=== PATIENT | female | born 1935 ===

== ENCOUNTER → 2016-06-29 | Outpatient (CLI) | payer MEDICARE, BC ==
[~2016-06-29] MED LIST: ASPIRIN LO-DOSE81 MG PO; ATORVASTATIN CA40 MG PO; BRILINTA90 MG PO; LEVOTHROID (S200 MCG PO; LEVOTHROID (SY50 MCG PO; LOSARTAN POTASS50 MG PO; METFORMIN HCL1000 MG PO; METOPROLOL TART25 MG PO
[2016-06-29 09:49] LABS: ALBUMIN 3.4 gm/dL (3.5-5.0); ALK PHOS 74 IU/L (33-138); ALT 29 IU/L (12-78); AST 25 IU/L (10-40); TOTAL BILIRUBIN 0.4 mg/dL (0.0-1.5); TOTAL PROTEIN 7.3 g/dL (6.0-8.4)
== END | disposition disaster alternative care site (69) ==
LOC: LCNC 09:28
PROVIDERS: Internal Medicine Interventional Cardiology
DX: E11.9 Type 2 diabetes mellitus without complications (principal); E78.00 Pure hypercholesterolemia, unspecified; R53.82 Chronic fatigue, unspecified

== ENCOUNTER 2016-10-26 17:20 | Inpatient (IN) | payer MEDICARE, BC ==
[~2016-10-26] VITALS: Ht 160 cm; Wt 88.6 kg
--- NOTE | ~2016-10-26 | CATH ---
Cardiac Diagnostic + PCI Report Demographics Patient Name JULIAN Meza Gender Female Date of 1935 Age 80 year(s) Patient Number [id number] Date of Study 10/27/2016 Visit Number [id number] Room Number G6338 [place] [id number] Ht 160.02 cm Wt 90.8 kg Referring Jacoby Otoolelambert Manzanares Primary Physician Physician MD Can Garcia MD Per[facility] Secondary Physician Physician Radha ENGLE Diagnostic [facility] Assisting Physician Physician Radha ENGLE Interventional [facility] Phys[facility] Evp Operations Physician Radha ENGLE Findings and Conclusions Diagnostic Findings and Conclusion 3 vessel CAD There is a focal 80% stenosis in the distal portion of the RCA. Diagnostic Recommendations 1.NSTEMI 2.PCI distal RCA 3.Poorly controlled Hypertension 4.LVEDP 10mmHg with no gradient across the aortic valve. Interventional Findings and Conclusion Status post PCI RCA with LUIS MIGUEL 3.0x16 promus premier stent. Interventional Recommendations Continue regular medications. Continue current medications. Hydration and followup creatinine. Patient has been instructed to not lift anything more than 5 pounds for 1 week. Aggressive risk factor management. Aggressive medical therapy. Aggressive medical therapy for coronary artery disease. Aggressive control of blood pressure. Dual Anti-platelet therapy. Optimization of medical therapy as an outpatient. Referral to Cardiac Rehabilitation now and at discharge . The patient will be observed in telemetry overnight and if stable, the patient will be allowed to return home tomorrow. I would like to thank Dr. Michel for the opportunity to participate in the care of Mrs Kunz . Procedure Description The patient was brought to the diagnostic cardiac catheterization-EP laboratory in the fasting, non-sedated state. Informed consent was obtained in the written and verbal form after the risks and benefits were explained. The patient had no further questions and agreed to proceed. The planned puncture-incision site(s) were shaved and prepped with ChloraPrep and draped in the usual sterile manner. Conscious sedation, supplemental oxygen, and pain control medications were delivered by a registered nurse under physician guidance. Surface ECG rhythm, blood pressure measurement, and pulse oximetry were monitored throughout the procedure. Arterial access. The access site was infiltrated with lidocaine. The vessel was entered with the Seldinger technique. A sheath was advanced into the vessel and used for catheter placement. Selective left coronary angiography. A catheter was advanced into the left coronary vessel ostium under Fluoroscopic guidance. Contrast was injected by hand. Images were obtained in multiple projections. Selective right coronary angiography. A catheter was advanced into the right coronary vessel ostium under fluoroscopic guidance. Contrast was injected by hand. Images were obtained in multiple projections. Left heart catheterization. A catheter was advanced across the aortic valve to the left ventricle under fluoroscopic guidance. Resting hemodynamics were obtained. Angioplasty and Stent Placement: A guiding catheter was used to intubate the vessel. A 0.14 wire was then used to cross the lesion. A balloon catheter was placed across the lesion and inflated. The balloon catheter was then removed. A Drug Eluting Stent was placed and inflated. Post placement angiograms were performed. Arterial artery hemostasis was achieved. The patient was transferred to a regular nursing floor via cart accompanied by a nurse. The patient left the laboratory in stable condition. Diagnostic Cath Status: Urgent Interventional Cath Status: Urgent Procedure Procedure Type Diagnostic procedure:Angiography:, Coronary Angios w/[facility] PCI procedure:Drug Eluting Coronary Stent:, RCA Indications: Dizziness and Elevated troponin. The procedure was explained in detail to the patient. Risks, complications and alternative treatments were reviewed. Written consent was obtained. Medications Reviewed with Patient prior to Procedure. Angiographic Findings Dominance: Right Cardiac Arteries and Lesion Findings LMCA: Lesion on LMCA: Mid subsection.10% stenosis . LAD: Diag very small.There is a previous stent on Prox LAD showing wide patency. Lesion on Dist LAD: Distal subsection.20% stenosis . Lesion on 1st Diag: Ostial.70% stenosis . LCx: OM smallThere is a previous stent on Mid CX Proximal subsection showing wide patency. Lesion on Prox CX: Proximal subsection.20% stenosis . Lesion on Mid CX: Mid subsection.40% stenosis . Lesion on 1st Ob Taylor: Mid subsection.20% stenosis . RCA: Lesion on Dist RCA: Distal subsection.80% stenosis 12 mm length reduced to 0%. Pre procedure BOB III flow was noted. Post Procedure BOB III flow was present. The guidewire cross was successful.The lesion was diagnosed as a low risk lesion.Culprit lesion. Devices used - Runthrough NS .014 x 180. Number of passes: 1. - Emerge Balloon 2.5 x 12. 1 inflation(s) to a max pressure of: 8 vivek. - Promus Premier 3.0 x 16 Stent. 2 inflation(s) to a max pressure of: 14 vivek. Lesion on Prox RCA: Proximal subsection.40% stenosis . Coronary Tree Procedure Data Procedure Date Date: 10/27/2016Start: 09:02 AMEnd: 09:56 AM Entry Locations - Percutaneous access was performed through the Right Radial artery (Primary location). A 6 Fr sheath was inserted. Unsuccessful closure attempt was performed using: Mechanical Compression. Hemostasis was successfully obtained using an R band. Closure Comments: R) band applied by Jonna. 10 ml of air in band. . Procedure Medications Order and Administration + + + + + !Time !Medication !Dosage !Route ! + + + + + !10/27/2016 09:00 AM!Versed !1 mg !I.V. ! + + + + + 10/27/2016 09:00 AM!Oxygen !2 l/min ! ! + + + + + 10/27/2016 09:02 AM!Fentanyl !25 mcg !I.V. ! + + + + + !10/27/2016 09:05 AM!Radial Verapamil !2.5 mg !I.A. ! + + + + + !10/27/2016 09:13 AM!Heparin (ACC_3) !5000 units!I.V. ! + + + + + !10/27/2016 09:13 AM!Hydralizine !20 mg !I.V. ! + + + + + !10/27/2016 09:16 AM!Nitroglycerin !10 mcg/min!I.V. drip ! + + + + + !10/27/2016 09:19 AM!Nitroglycerin ! !I.V. drip ! + + + + + !10/27/2016 09:19 AM!0.9% NaCl !500 ml !I.V. bolus ! + + + + + !10/27/2016 09:21 AM!0.9% NaCl ! !I.V. bolus ! + + + + + !10/27/2016 09:27 AM!Heparin (ACC_3) !2000 units!I.V. ! + + + + + !10/27/2016 09:55 AM!Brilinta (Ticagrelor) (ACC_20)!180 mg !P.O. ! + + + + + Devices Used - A5 Fr. BS JR 4 Diag. Catheterwas used for:Right coronary angiography. - A5 Fr. BS JL 3.5 Diag. Catheterwas used for:Left coronary angiography. - A5 Fr. BS JR 4 Diag. Catheterwas used for:Right coronary angiography. Contrast Material - Isovue 56346 ml Fluoroscopy Time: Diagnostic: 14:24 minutes. Total: 14:24 minutes. Fluoroscopy Dose: Diagnostic: 982 mGy. Total: 982 mGy. Estimated Blood Loss: 15 ml. Additional [facility] PCI Information PCI Indication:PCI for high risk Non-STEMI or unstable angina. Medical History Performed Procedures and Imaging Results - No [facility] stress or imaging studies were performed. Allergies - No known allergies. Risk Factors The patient risk factors include:prior PCI;cerebrovascular disease, hypertension, orally-treated diabetes mellitus, last creatinine: 0.8 mg/dl, creatinine clearance: 79.06 ml/min and dyslipidemia. Admission Data Admission Date: 10/26/2016 Admission Time: 07:15 PM Admit Source: Emergency department Insurance Payors: Medicare. Admission Medications + +------+------+ + + + + !Medication !Dosage!Times !Last !Last !Administered !Comments ! ! ! !Per !Delivery !Delivery ! ! ! ! ! !Day !Date !Time ! ! ! + +------+------+ + + + + !Beta ! ! ! ! !Yes ! ! !Rick ! ! ! ! ! ! ! !(any) ! ! ! ! ! ! ! + +------+------+ + + + + !Aspirin ! ! ! ! !Yes ! ! !(any) ! ! ! ! ! ! ! + +------+------+ + + + + !ARB (any) ! ! ! ! !Yes ! ! + +------+------+ + + + + !Statin ! ! ! ! !Yes ! ! !(any) ! ! ! ! ! ! ! + +------+------+ + + + + Clinical Evaluation Leading to Procedure - The patient's CAD presentation was assessed as: Non-STEMI. - Anti-anginal medications were prescribed during the past two weeks. The medication is: Beta Blockers. Hemodynamics Condition: Rest O2 Consumption: Estimated: 175.97Heart Rate: 75 bpm Pressures (mmHg) +-----+ + !Site !Pressure ! +-----+ + !AO !245/78 (147) ! +-----+ + !LV !220/10 ,13 ! +-----+ + !LV !206/9 ,12 ! +-----+ + !AO !209/68 (125) ! +-----+ + !LV !/6 ,10 ! +-----+ + !AO !86/32 (50) ! +-----+ + !AO !169/55 (101) ! +-----+ + Valve Gradients and Areas + +---------+---------+---------+ +---------+ + !Valve !Peak !Mean !Area !Index !Flow !Source ! + +---------+---------+---------+ +---------+ + !Aortic !0 !0 ! ! ! ! ! + +---------+---------+---------+ +---------+ + !Aortic !0 !0 ! ! ! ! ! + +---------+---------+---------+ +---------+ + Shunts Oxygen Values O2 Capacity 175.44 O2 Consumption 175.97 Signatures dtt: RADHA HARRIS dtd: 10/27/16 0902 Physician Self Edit
--- NOTE | ~2016-10-26 | HP ---
PATIENT'S NAME: SHAUNNA JORDAN [facility] AGE: 80 Y [address] ROOM: [place] [address] LOCATION: GPCU ADMIT DATE: 10/26/2016 History & Physical DISCHARGE DATE: FAMILY PHYSICIAN: LIDIA SIMEON MD ATTENDING PHYSICIAN: LIDIA SIMEON DATE OF SERVICE: CHIEF COMPLAINT: Nausea and vomiting. HISTORY OF PRESENT ILLNESS: The patient is a pleasant, elderly, white female, well known to me, who all of a sudden this mid afternoon today developed nausea and vomiting. She had a bowel movement earlier today with no melena noted. She vomited no blood, but just felt dizzy before this nausea and vomiting spell. She has had no recent head trauma. She is type 2 diabetic with a known heart murmur and coronary artery disease and previous carotid endarterectomy. Here in the hospital, she was seen by the emergency room physician/nurse practitioner, KACIE, and because her cardiac enzymes were a bit elevated and because she has persistent nausea and vomiting, I am asked to see her and consider admission. I have had the nurses call the patient's tray server, Dr. Michel. He happened to be out of town, so Dr. Johnson, [facility] tray server has recommended we admit the patient for observation. When I come to see the patient in the emergency room, she is resting quietly, alert, but is pale and nauseated. She is oriented to person, place, and time. Has no focal neurologic abnormality. Does not complain of a headache or chest pain. She says her dizziness is okay as long as she keeps her head still. We will admit her at this time, give her IV fluid normal saline, recheck cardiac enzymes and EKG in a serial fashion, and have Cardiology see her in the morning. I have ordered an echocardiogram for the morning also. We will check Accu-Cheks and use a sliding scale insulin here as needed. PAST MEDICAL HISTORY: MEDICINES: Reviewed. ALLERGIES: NOTED. SOCIAL HISTORY: Does not smoke. PATIENT'S NAME: SHAUNNA JORDAN [facility] AGE: 80 Y [address] ROOM: [place] [address] LOCATION: GPCU ADMIT DATE: 10/26/2016 History & Physical DISCHARGE DATE: FAMILY PHYSICIAN: LIDIA SIMEON MD ATTENDING PHYSICIAN: LIDIA SIMEON FAMILY HISTORY: Noncontributory. IMMUNIZATIONS STATUS: Up-to-date for age. REVIEW OF SYSTEMS: Positive for history of coronary artery disease, carotid endarterectomy, diabetes mellitus type 2, known heart murmur, exogenous obesity, and recent dizziness. Otherwise, see nurse's database form. PHYSICAL EXAMINATION: GENERAL: A pleasant dark-haired female, who appears at her stated age, sitting in the ER. She is oriented to person, place, and time. VITAL SIGNS: Noted. HEENT: Shows pupils react to light. She has no nystagmus. TMs are not visualized. Posterior pharynx is clear. NECK: Shows no obvious mass. Thyroid is not enlarged. I did not listen for a bruit. LUNGS: Clear. She has a grade 2-3/6 systolic ejection murmur, heard at the right second intercostal space and apex. BREASTS: Not done. ABDOMEN: Benign without point tenderness or mass. PELVIC AND RECTAL: Not done. EXTREMITIES: Show trace of edema. Pulses full throughout. NEUROLOGIC: Grossly intact. Cranial nerves intact. No lateralizing signs. MENTAL STATUS: She is anxious about her health. ASSESSMENT: 1. Acute nausea and vomiting secondary to dizziness, etiology undetermined. 2. Known coronary disease. 3. Heart murmur, systolic. 4. Status post right carotid endarterectomy. 5. History of diabetes mellitus type 2, treated with insulin. 6. History of hypothyroidism. PLAN: As above. LIDIA SIMEON MD PATIENT'S NAME: SHAUNNA JORDAN [facility] AGE: 80 Y [address] ROOM: [id number] [place] [id number] LOCATION: GPCU ADMIT DATE: 10/26/2016 History & Physical DISCHARGE DATE: FAMILY PHYSICIAN: LIDIA SIMEON MD ATTENDING PHYSICIAN: LIDIA SIMEON INVESTOR RELATIONS DIRECTOR/modl /[id number] D: [id number] HISTORY & PHYSICAL
--- NOTE | ~2016-10-26 | CON ---
PATIENT'S NAME: SHAUNNA JORDAN [facility] AGE: 80 Y [address] ROOM: [place] [address] LOCATION: GPCU ADMIT DATE: 10/26/2016 Consultation DISCHARGE DATE: FAMILY PHYSICIAN: LIDIA DOZIER MD ATTENDING PHYSICIAN: LIDIA DOZIER DATE OF CONSULTATION: 10/27/2016 REFERRING PHYSICIAN: Gurdeep Michel MD REQUESTING PROVIDER: Lidia Dozier MD. PRIMARY DAIRY FARM WORKER: Gurdeep Michel MD. CHIEF COMPLAINT: Nausea, dizziness, and diaphoresis. HISTORY OF PRESENT ILLNESS: The patient is a very pleasant 80-year-old female who has a history of coronary artery disease status post PCI to RCA, stenting of the LAD and circumflex in the past. The patient also has history of renal artery stenosis status post stenting of both renal arteries. The patient usually sees Dr. Michel and I am seeing her today because I am on-call and he is not available. The patient presented to the ER yesterday with complaints of nausea as well as vomiting, severe diaphoresis, and dizziness. Her symptoms lasted a few hours and they were recurrent. She was quite diaphoretic with her symptoms as well as had dizziness. She reports some shortness of breath, however, no chest discomfort. She does not have any PND or orthopnea. She has lower extremity edema off and on. She has not had any syncopal episodes or palpitations. No fever, chills, changes in her vision, strength, or sensation. She does not really have any other acute complaints at this time. She has numerous comorbidities including type 2 diabetes mellitus, history of heart murmur, history of previous carotid endarterectomy. Overnight, the patient did do well and her nausea resolved. However, she did have an elevated troponin and some ST depressions in the EKG, a little bit more pronounced than prior especially in lead V3, normal sinus rhythm, LVH with ST depressions in inferior and anterolateral leads likely secondary to LVH. The patient is comfortable during interview. PATIENT'S NAME: SHAUNNA JORDAN [facility] AGE: 80 Y [address] ROOM: [place] [address] LOCATION: GPCU ADMIT DATE: 10/26/2016 Consultation DISCHARGE DATE: FAMILY PHYSICIAN: LIDIA DOZIER MD ATTENDING PHYSICIAN: LIDIA DOZIER REVIEW OF SYSTEMS: A 10-point review of systems discussed with the patient. Pertinent positives and negatives mentioned in the history of presenting illness. ALLERGIES: NO KNOWN DRUG ALLERGIES. MEDICATIONS: 1. Aspirin 81 daily. 2. Atorvastatin 40 mg daily. 3. Synthroid 50 mcg daily. 4. Losartan 50 daily. 5. Metformin 500 mg p.o. b.i.d. 6. Metoprolol tartrate 12.5 b.i.d. 7. Synthroid 250 mcg daily. 8. In the hospital, she is on sliding scale insulin as well as Rocephin. PAST MEDICAL HISTORY: 1. Coronary artery disease status post PCI to LAD in 2008 and then circumflex in 2014, renal artery stenosis status post bilateral renal artery stenting. 2. Hypertension. 3. Hyperlipidemia. 4. History of CVA. 5. History of LVH. 6. Aortic valve sclerosis. 7. Type 2 diabetes mellitus. 8. Hypothyroidism. 9. Osteoarthritis. PAST SURGICAL HISTORY: 1. Left medial meniscal tear repair in 2001. 2. Left total knee arthroplasty in 2002. 3. Right and left cataract surgery. 4. Right total knee replacement in 10/2004. 5. Left CEA status post CVA in 2010. 6. Renal artery stenting bilaterally. FAMILY HISTORY: No premature coronary artery disease or sudden cardiac . SOCIAL HISTORY: The patient does not smoke or drink alcohol. No illicit drug abuse. She is . PATIENT'S NAME: SHAUNNA JORDAN [facility] AGE: 80 Y [address] ROOM: [id number] [place] [id number] LOCATION: GPCU ADMIT DATE: 10/26/2016 Consultation DISCHARGE DATE: FAMILY PHYSICIAN: LIDIA DOZIER MD ATTENDING PHYSICIAN: LIDIA DOZIER ALLERGIES: LISINOPRIL CAUSES ADVERSE REACTION AND COUGH. PHYSICAL EXAMINATION: VITAL SIGNS: Blood pressure is 190/70 mmHg, heart rate is in the 60s, respirations 16, and O2 saturation 97% on room air. GENERAL: She is well nourished, well developed, not in any apparent distress. HEAD: Atraumatic, normocephalic. NECK: No JVD. Good range of motion. Left CEA scar noted. HEART: S1, S2. Regular rate and rhythm. 3/6 systolic murmur best heard in the right upper sternal border. CHEST: Clear to auscultation bilaterally. No wheezing or crackles. ABDOMEN: Soft. Bowel sounds positive. EXTREMITIES: No significant lower extremity edema. SKIN: Warm and dry. PSYCHIATRIC: Mood normal. The patient is cooperative. NEUROLOGIC: Grossly intact. She is awake, alert, and oriented to time, place, and person. IMPRESSION: 1. NSTEMI: Coronary artery disease of [place] vessels status post PCI of the LAD and circumflex in the past and now admitted with non-ST elevation myocardial infarction. Her troponin peak is 0.3, CPK 737, and CK-MB is 14.8. The CK-MB peaked at 24.7. 2. Secondary hypertension,given the history of renal artery stenosis s/p stenting bilaterally. 3. Diabetes mellitus type 2. 4. Hyperlipidemia. 5. Hypothyroidism. 6. Aortic valve sclerosis. 7. History of cerebrovascular accident status post left carotid endarterectomy. PLAN: 1. At this time recommend more aggressive blood pressure control. Her blood pressure this morning was systolic 180s. We will continue to optimize her meds. Given the [id number] myocardial infarction, we will proceed with left heart catheterization plus minus PCI. Risks and benefits were discussed with the patient and and they are agreeable to proceed with plan. Risk of bleeding, bruising, infection 1 in 100 cases, risk of heart attack, , stroke, SC, bleed, CVA, EDMAR, end-stage renal, and worsening renal function including need for dialysis discussed with the patient. They are agreeable given the non-STEMI to PATIENT'S NAME: SHAUNNA JORDAN [facility] AGE: 80 Y [address] ROOM: [place] [address] LOCATION: GPCU ADMIT DATE: 10/26/2016 Consultation DISCHARGE DATE: FAMILY PHYSICIAN: LIDIA DOZIER MD ATTENDING PHYSICIAN: LIDIA DOZIER proceed with cardiac cath. Optimize her statin therapy as well depending on her LDL. 2. She is on sliding scale insulin for better blood sugar control. 3. Further recommendations after the cardiac cath findings. Thank you very much Dr. Dozier and Dr. Michel for allowing us to participate in the care of Ms. Jordan. MD BUTCH ANAYA/robby /[id number] d: 10/27/16 1623 t: 10/28/16 1213, CONSULTATION REPORT
--- NOTE | ~2016-10-26 | ECHO ---
Transthoracic Echocardiography Report (TTE) Demographics Patient Name SHAUNNA JORDAN Date of Study 10/27/2016 Patient Number [id number] Visit Number [id number] Date of 1935 Room Number G6338 Accession Number [id number] Gender Female Age 80 year(s) Referring Jacoby Manzanares Medical Delivery Driver Alisson Mccall RDCS, Physician RVT Physician Interpreting [place] Manager Disaster Recovery Physician Radha ENGLE Supervising Ordering Physician Jacoby Manzanares MD/MLP Nurse Stress Asphalt Distributor Operator Conclusions Contractility Score Summary Normal Left Ventricular contractility was noted. Summary Normal LV/RV size and systolic function. The estimated left ventricular ejection fraction is 60-65%. Mild to moderate concentric left ventricular hypertrophy. Diastolic assessment reveals Grade I diastolic dysfunction. The left atrium is mildly dilated. No significant valvular abnormalities. Procedure Type of Study TTE procedure:2D Echocardiogram. Procedure Date Date: 10/27/2016 Start: 06:49 AM Study Location: Inpatient Portable Technical Quality: Fair Indications:Elevated cardiac enzymes. Appropriate Use Criteria: 9 Patient Status: Routine Contrast Medium: Bubble Study. Amount - 9 ml Rhythm: Within normal limits HR: 65 bpm Allergies - No known allergies. M-Mode/2D Measurements LV Diastolic Dimension: 3.89 cm LV Systolic Dimension: 2.73 cm LV Septum Diastolic: 1.41 cm LV Septum Systolic: 2.96 cm LV PW Diastolic: 1.56 cm AO Root Dimension: 2.5 cm Cardiac Output: 6.57 l/min AV Cusp Separation: 0.9 cm RV Diastolic Dimension: 2.3 cm LA volume: 79 ml IVC Inspiration: 1.37 cm LVOT: 2.1 cm RV Base: 3.69 cm LVOT VTI: 29.2 cm RV Mid: 2.61 cm LV Stroke volume: 101.09 ml TAPSE: 2.08 cm TDI-S': 15 cm/s Doppler Measurements AV Peak Velocity: 1.83 m/s MV Peak E-Wave: 1.03 m/s AV Peak Gradient: 13.4 mmHg MV Peak A-Wave: 1.26 m/s AV Mean Gradient: 7 mmHg MV E/A Ratio: 0.82 LVOT Peak Velocity: 1.22 m/s MV P1/2t: 62 msec TR Gradient:26.21 mmHg PV Peak Velocity: 1.15 m/s Estimated RAP:3 mmHg PV Peak Gradient: 5.29 mmHg Estimated RVSP: 29 mmHg Estimated PASP: 29.21 mmHg E' Septal Velocity: 0.05 m/s A' Septal Velocity: 0.08 m/s E' Lateral Velocity: 0.05 m/s A' Lateral Velocity: 0.11 m/s MV E/E' Ratio: 19 Findings Left Ventricle Mild to moderate concentric left ventricular hypertrophy. Diastolic assessment reveals Grade I diastolic dysfunction. Right Ventricle Grossly normal right ventricle structure and function. Left Atrium The left atrium is mildly dilated. Right Atrium The right atrium is normal in size. IVC measures 1.4 cm with inspiratory collapse. Mitral Valve Mild mitral regurgitation by color Doppler. Mild mitral annular calcification. Aortic Valve The aortic valve is mildly sclerotic. Tricuspid Valve Mild tricuspid regurgitation by color Doppler. Pulmonic Valve No pulmonic valve regurgitation by color Doppler. Grossly normal pulmonic valved anatomy and function. Pericardial Effusion No evidence of pericardial effusion. Epicardial fat pad noted. Miscellaneous Visualized portions of the aortic root and ascending aorta appear normal in size. Pleural Effusion No evidence of pleural effusion. Contractility Score LV regional wall motion:(0-Non visualized 1-Normal 2-Hypokinesis 3-Akinesis 4-Dyskinesis 5-Aneurysm) Signature dtt: RADHA HARRIS dtd: 10/27/16 0649 Physician Self Edit
--- NOTE | ~2016-10-26 | DS ---
PATIENT'S NAME: SHAUNNA JORDAN [facility] AGE: 80 Y [address] ROOM: [facility] [place] [place] [address] LOCATION: GPCU ADMIT DATE: 10/26/2016 Discharge Summary DISCHARGE DATE: 10/28/2016 FAMILY PHYSICIAN: Lidia Simeon MD ATTENDING PHYSICIAN: Lidia Simeon FINAL DIAGNOSES: 1. Acute nausea and vomiting, resolved. 2. Non-ST segment myocardial infarction. 3. Occlusion, right coronary artery, status post heart catheterization and stent placement in right coronary artery. 4. Diabetes mellitus type 2. 5. Hypothyroidism. 6. Status post pacemaker for sick sinus syndrome. 7. Status post carotid endarterectomy. 8. Known coronary artery disease. 9. Hypertension, now essential. HOSPITAL COURSE: This pleasant 80-year-old female was admitted to the hospital with acute nausea and vomiting from the ER because not only did she have those symptoms but she also had an elevated CPK, CPK-MB, and troponin. Her EKG showed no evolutionary changes consistent with [place]. She was seen in consultation by Dr. Radha Vaca, the want ad clerk from [facility] and was taken to the laboratory associate the day prior to dismissal and was found to have an occlusion in the right coronary artery and a stent was placed. Please refer to Dr. Radha Vaca's heart catheterization note. On the day of dismissal, the patient was chest pain-free, her nausea and vomiting had resolved. She was tolerating diet well. She was ambulating without chest pain or shortness of breath. She is dismissed on the med list shown, this has been blessed by the cardiology team and she should see me back in the office in a couple weeks and follow up as directed per the want ad clerk status post heart catheterization. Certainly, if she has chest pain or shortness of breath or recurrent nausea and vomiting, she should be seen back earlier. LIDIA SIMEON MD CASE LOADER OPERATOR/modl /[id number] d: 10/28/16 0813 t: 11/02/16 1735, DISCHARGE SUMMARY
--- NOTE | ~2016-10-26 | ER ---
[facility] 80 Y [address] ROOM: [address] [address] LOCATION: GPCU ADMIT DATE: 10/26/2016 ER/Outpatient Report DISCHARGE DATE: FAMILY PHYSICIAN: LIDIA DOZIER MD ATTENDING PHYSICIAN: LIDIA DOZIER Time of Arrival: 172. Time of Evaluation: 172. CHIEF COMPLAINT: Dizziness. HISTORY OF PRESENT ILLNESS: The patient states approximately 4 o'clock this afternoon she was sitting in her recliner at home, had felt fine earlier today, she had sudden onset of feeling very dizzy and lightheaded. She got nauseated. Did vomit prior to arrival. Became very diaphoretic but denied having any chest pain or feeling short of breath. Upon arrival to the ER, she continues to deny any chest pain. Denies having had a cough or shortness of breath. Denies feeling feverish or chills. States she just got very hot and became very sweaty. States she did have diarrhea stools x3 after the dizziness started prior to the ER. ALLERGIES: SHE HAS NO KNOWN ALLERGIES. CURRENT MEDICATIONS: On her chart and reviewed by me. 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 PAST SURGERIES: Include a carotid endarterectomy, coronary artery stents x2, renal stents x2, cataracts, total knee x2. SOCIAL HISTORY: She lives at home with her . Denies use of tobacco, drugs, or alcohol. She states Dr. Dozier is her primary provider. Dr. Michel is her boss miner. REVIEW OF SYSTEMS: All negative other than those mentioned in the HPI. [facility]GE: 80 Y [address] ROOM: [address] [address] LOCATION: GPCU ADMIT DATE: 10/26/2016 ER/Outpatient Report DISCHARGE DATE: FAMILY PHYSICIAN: ILDIA DOZIER MD ATTENDING PHYSICIAN: LIDIA DOZIER PHYSICAL EXAMINATION: VITAL SIGNS: She weighed 87.9 kg. Blood pressure is 221/100, pulse is 76, respirations 20, temperature of 95.7 tympanic, O2 saturation has been 94% on room air. GENERAL: She is awake, alert, and oriented x4. SKIN: Her skin is pink, but diaphoretic. RESPIRATIONS: Even and nonlabored. EYES: Pupils are equal and reactive to light. LUNGS: Sounds are clear throughout. HEART: Regular rate and rhythm. ABDOMEN: Soft, nondistended. Bowel sounds are present. EMERGENCY DEPARTMENT COURSE: monitoring analyst shows a sinus rhythm. She does have some weakness of the right hand. She states that has not changed from when she had her stroke. Dr. Verduzco was contacted. He did also examine the patient. She is positive for nystagmus with his exam. Saline lock was initiated. Lab work was obtained. She was given Zofran 4 mg IV. Her CBC comes back with a white count of 15.2, hemoglobin 12.9, hematocrit of 38.5. Her Chem panel, sodium is 134, potassium is 3.8, chloride of 99. Her Accu-Chek was 308 and her glucose was 309. BUN 14 with a creatinine of 0.8. GFR was 70. Her CPK was 1243. Her CK-MB is elevated at 24.7, and troponin was 0.056. Her free T4 is 1.6 with a TSH of 0.351. Lactate came back elevated at 3.2. Procalcitonin was normal. ProBNP was 442. EKG was completed. Reviewed with Dr. Verduzco. Does not show any significant changes from her previous EKGs. Dr. Dozier was contacted. He asked that I call Dr. Michel. Dr. Michel was not available, but I did talk with Dr. Johnson regarding the patient. He wanted to admit her for observation. Did call and talk with Dr. Dozier. He agrees that the patient should be admitted. We did do a cath UA on her. It was negative for leukocytes and nitrites. Negative for white count or bacteria. It was positive for glucose and ketones. CT of her head was completed. Radiologist reports no acute ischemia or hemorrhage. She has remote-appearing left parietal encephalomalacia, periventricular small vessel ischemic changes. Chest x-ray showed cardiac mildly prominent but no infiltrates, pleural effusion, or pneumothorax per the Radiology report. Nausea continued after she returned from CT. The Zofran was repeated. Vital signs remained stable and her blood pressure did come down. Lowest was 158/69. She remained in a sinus rhythm with O2 saturations greater than 95% on room air. Dr. Dozier did come in and evaluate the patient. IMPRESSION: 1. Dizziness. PATIENT'S NAME: SHAUNNA JORDAN [facility] AGE: 80 Y [address] ROOM: [place] [address] LOCATION: [facility] ADMIT DATE: 10/26/2016 ER/Outpatient Report DISCHARGE DATE: FAMILY PHYSICIAN: LIDIA DOZIER MD ATTENDING PHYSICIAN: LIDIA DOZIER 2. Elevated cardiac enzymes. PLAN: The patient will be admitted for care, Dr. Dozier and Cardiology. Her and her verbalized understanding. JERE DUENAS APRN FOR MD [employer] ENGLISH/robby /[id number] d: 10/27/16 0148 t: 11/15/16 0915, OUTPATIENT REPORT
[2016-10-26 17:43] LABS: BASOPHIL # 0.1 K/uL (0.0-0.2); BASOPHIL % 0.3 %; EOSINOPHIL # 0.2 K/uL (0.0-0.5); EOSINOPHIL % 1.1 %; HEMATOCRIT 38.5 % (30.0-46.0); HEMOGLOBIN 12.9 g/dL (10.0-15.0); IMMATURE GRANULOCYTE # 0.1 K/uL (0.0-0.3); IMMATURE GRANULOCYTE % 0.9 %; LYMPHOCYTE # 2.6 K/uL (0.8-4.0); LYMPHOCYTE % 17.1 %; MCH 30.9 pg (27.0-34.0); MCHC 33.5 gm/dL (32.0-36.5); MCV 92.1 fl (83.0-98.0); MONOCYTE # 0.6 K/uL (0.0-1.0); MPV 10.6 fl (9.4-12.4); NEUTROPHIL # (ANC) 11.6 K/uL (1.8-7.8); NEUTROPHIL % 76.6 %; NRBC % 0 /100WBC (0-0.00); PLATELET COUNT 223 K/uL (150-450); RBC 4.18 M/uL (3.00-5.00); RDW-CV 12.5 % (11.9-14.6); WBC 15.2 K/uL (4.0-11.0)
[2016-10-26 17:53] LABS: INR - (THERAPEUTIC) 0.91 (0.92-1.07); PROTIME 9.5 SECONDS (9.8-11.4); PTT 22 SECONDS (25-32)
[2016-10-26 18:03] LABS: ALBUMIN 3.6 gm/dL (3.5-5.0); ANION GAP 15.8 (10.0-19.0); CALCIUM 9.6 mg/dL (8.5-10.5); CREATININE 0.8 mg/dL (0.5-1.1); POTASSIUM 3.8 mMol/L (3.7-5.1); TOTAL PROTEIN 7.7 g/dL (6.0-8.4)
[2016-10-26 18:08] LABS: MAGNESIUM 1.1 mg/dL (1.8-2.6); TOTAL BILIRUBIN 0.3 mg/dL (0.0-1.5)
[2016-10-26 18:15] LABS: BILIRUBIN URINE NEGATIVE (NEGATIVE); BLOOD URINE 150 /UL (NEGATIVE); COLOR URINE COLORLESS (YELLOW); GLUCOSE URINE 1000 mg/dL (NEGATIVE); KETONE URINE 15 mg/dL (NEGATIVE); LEUKOCYTES URINE NEGATIVE /UL (NEGATIVE); NITRITE URINE NEGATIVE (NEGATIVE); PROTEIN URINE 100 mg/dL (NEGATIVE); TURBIDITY URINE CLEAR (CLEAR); UROBILINOGEN URINE NORMAL (NORMAL)
[2016-10-26 18:24] LABS: WBC URINE 0-2 #/HPF (NEGATIVE)
[2016-10-26 18:25] LABS: BACTERIA URINE NEGATIVE (NEGATIVE)
[2016-10-26] MEDS ORDERED: LEVOTHROID (SY50 MCG PO (20:43)
[2016-10-26] MEDS ORDERED: LEVOTHROID (S200 MCG PO (20:44)
[2016-10-26] MEDS ORDERED: LOSARTAN POTASS50 MG PO (20:44)
[2016-10-26] MEDS ORDERED: METOPROLOL TART25 MG PO (20:45)
[2016-10-26] MEDS ORDERED: ATORVASTATIN CA40 MG PO (20:46)
[2016-10-26] MEDS ORDERED: METFORMIN HCL1000 MG PO (20:48)
[2016-10-26] MEDS ORDERED: ASPIRIN LO-DOSE81 MG PO (20:50)
--- NOTE | 2016-10-27 04:23 | NUR ---
Pt a/o x4. vss on RA, afebrile. admitted for n/v/d, dizziness, and diaphoresis yesterday afternoon. WBC elevated in ed. blood cultures drawn. fluds started, iv abx started. pt takes pills whole. sba. hx of old cva with some r sided weakness. Some swelling noted to lower extremities as well as valerie. Plan: cardiac enzymes, ekgs, echo
--- NOTE | 2016-10-27 15:14 | NUR ---
[facility] note: 1100 and 1330 Spoke with patient and spouse. (sons present in the room at time of visit). Patient current A1C was 9.9 on 10/26/16. Patient states she has been on insulin in the past, but when she lost weight and was very active, Dr. Dozier took her off of insulin and she has taken oral meds of diabetes for past 2 years. On Metformin 1000 mg BID as per medication recon. Patient has history of stroke and has right hand weakness and spouse reports having given patient insulin shots to her in the past. Anticipate patient will need insulin upon dismissal from hospital, on mild sliding scale Novolog here. Provided Diabetes Management booklet and Survival skills checklist given to them to complete. When CDE return to room later, they had completed the form and we reviewed all aspects/topics of diabetes in detail. The majority of their questions were regarding carb counting, meal planning written materials provided and discussed. From what they report, they do eat "healthy" meals and includes lots of fresh vegatables. Encouraged daily foot care, patient reports "...not having very good feeling in feet", also encouraged pottery kiln builder to evaluate feet, as she would be a candidate for supportive footware. Patient reports having a Contour meter at home, only testing once per day, usually in the morning before breakfast. CDE did attempt to reach Dr. Dozier via phone, a message was returned stating that Dr. Cates will round on patient later today and determine whether patient will need insulin injections at home. Will have CDE follow up on 10/28/16.
--- NOTE | 2016-10-27 15:22 | NUR ---
Introduced self and role of care management to patient and her family. She lives with her in [place]. She states that she is able to do some of her own ADL's but since her stroke she is limited cause she can not use her right arm. She states that her hleps out with what she can not do. She plans on returning home on discharge. She denies any needs at this time. Will continue to follow.
--- NOTE | 2016-10-27 17:09 | NUR ---
Significant Event: A/O x3, cooperative with cares. VSS, SBPs 90-170s, HRs 60s, on room air. Echo shows an EF of 60-65%. Heart cath today stent placed to distal RCA; site to R) radial soft, tender, patient states is tolerable; R) band removed et band-aid et coban in place. Up with assist of 1 et gait belt to bathroom; ambulate in hernandez with cardiac rehab Follow up: check BP in both arms et document in chart; renal ultrasound tomorrow; possible d/c tomorrow
--- NOTE | 2016-10-28 04:35 | NUR ---
Significant Event: Pt A&Ox3. VS stable, remains on RA. SBP 110's-140's. Rt radial site remains soft and tender. Very weak grasp with Rt hand. Chronic numbness to hunter toes. Cardiac enzymes remain elevated, but no c/o chest pain. No c/o dizziness, nausea, chest pain, etc on shift. Follow up: Continue plan of care. Renal US. Possible d/c today.
[2016-10-28 05:04] LABS: ALBUMIN 2.8 gm/dL (3.5-5.0); ANION GAP 12.7 (10.0-19.0); CALCIUM 8.7 mg/dL (8.5-10.5); CREATININE 0.6 mg/dL (0.5-1.1); POTASSIUM 3.7 mMol/L (3.7-5.1); TOTAL PROTEIN 6.2 g/dL (6.0-8.4)
[2016-10-28 05:09] LABS: TOTAL BILIRUBIN 0.4 mg/dL (0.0-1.5)
--- NOTE | 2016-10-28 10:24 | NUR ---
Diabetes consult: Visited with the patient this morning regarding her diabetes. The patient reports she is planning to be discharged today. Review of chart indicates that she will be going home on oral glycemics and will not start insulin therapy. The patient denies any questions or concerns.
[2016-10-28] MEDS ORDERED: BRILINTA90 MG PO (12:06)
--- NOTE | 2016-10-28 13:15 | NUR ---
Significant Event: A/O x3, cooperative with cares. VSS, SBPs 90-180s, HRs 60-70s, on room air. No c/o pain. Heart cath site to R) radial, soft, ecchymotic et slightly tender; band-aid C/D/I. Up with SBA to bathroom; ambulate hernandez. Dismissal instructions given to patient et , verbalized understanding. Dismissed to front lobby per w/c accompanied by nursing assoc et Follow up:
== END 2016-10-28 12:45 | disposition disaster alternative care site (69) | DRG 247 ==
LOC: GMED 17:20 → GPCU 19:15
PROVIDERS: Internal Medicine Interventional Cardiology; Nurse Practitioner Family; ADMIT Family Medicine
PROC: 4A023N7 Measurement of Cardiac Sampling and Pressure, Left Heart, Percutaneous Approach (ICD-10-PCS; principal; 2016-10-27)
PROC: 027034Z Dilation of Coronary Artery, One Artery with Drug-eluting Intraluminal Device, Percutaneous Approach (ICD-10-PCS; principal; 2016-10-27)
PROC: B2151ZZ Fluoroscopy of Left Heart using Low Osmolar Contrast (ICD-10-PCS; principal; 2016-10-27)
DX: I21.4 Non-ST elevation (NSTEMI) myocardial infarction (principal); I69.351 Hemiplegia and hemiparesis following cerebral infarction affecting right dominant side; I15.9 Secondary hypertension, unspecified; I10 Essential (primary) hypertension; I25.10 Atherosclerotic heart disease of native coronary artery without angina pectoris; R11.2 Nausea with vomiting, unspecified; E78.5 Hyperlipidemia, unspecified; E03.9 Hypothyroidism, unspecified; E11.9 Type 2 diabetes mellitus without complications; R01.1 Cardiac murmur, unspecified; Z95.5 Presence of coronary angioplasty implant and graft; Z95.828 Presence of other vascular implants and grafts; Z95.0 Presence of cardiac pacemaker; I35.8 Other nonrheumatic aortic valve disorders; Z96.653 Presence of artificial knee joint, bilateral; Z79.82 Long term (current) use of aspirin; Z79.84 Long term (current) use of oral hypoglycemic drugs; I70.1 Atherosclerosis of renal artery; M19.90 Unspecified osteoarthritis, unspecified site
CPT/HCPCS: C1725; C1769; C1874; C1887; C9600; J0360; J0461; J0696; J1644; J2250; J2370; J2405; J3010; J7030; J7040; J7050

== ENCOUNTER → 2016-11-14 | Outpatient (CLI) | payer MEDICARE, BC ==
[2016-11-14 16:07] LABS: BASOPHIL % 0.4 %; EOSINOPHIL # 0.2 K/uL (0.0-0.5); EOSINOPHIL % 1.9 %; HEMATOCRIT 35.7 % (30.0-46.0); HEMOGLOBIN 11.8 g/dL (10.0-15.0); IMMATURE GRANULOCYTE % 0.4 %; LYMPHOCYTE # 2.5 K/uL (0.8-4.0); LYMPHOCYTE % 23.5 %; MCH 30.8 pg (27.0-34.0); MCHC 33.1 gm/dL (32.0-36.5); MCV 93.2 fl (83.0-98.0); MONOCYTE # 0.7 K/uL (0.0-1.0); MONOCYTE % 6.3 %; MPV 10.9 fl (9.4-12.4); NEUTROPHIL # (ANC) 7.2 K/uL (1.8-7.8); NEUTROPHIL % 67.5 %; NRBC % 0 /100WBC (0-0.00); PLATELET COUNT 225 K/uL (150-450); RBC 3.83 M/uL (3.00-5.00); RDW-CV 12.9 % (11.9-14.6); WBC 10.7 K/uL (4.0-11.0)
[2016-11-14 16:21] LABS: ALBUMIN 3.2 gm/dL (3.5-5.0); CALCIUM 9.3 mg/dL (8.5-10.5); CREATININE 0.8 mg/dL (0.5-1.1); PHOSPHORUS 2.7 mg/dL (2.5-4.9)
== END ==
LOC: LCNC 15:54
PROVIDERS: Internal Medicine Interventional Cardiology
DX: I25.10 Atherosclerotic heart disease of native coronary artery without angina pectoris (principal)